=== PATIENT | male | born 1930 | race Caucasian/White ===

== ENCOUNTER 2018-09-28 13:45 | Emergency (ER) | payer OTHER ==
[~2018-09-28] VITALS: Ht 177.8 cm; Wt 70.3 kg
--- NOTE | ~2018-09-28 | EKG ---
[place] [address] [employer] [employer] [place] [address] ELECTROCARDIOGRAM REPORT Name: KATRINA ROY Room #: FABY Browning#: [id number] Admission: 09/28/18 Attend Phys: Discharge: 09/28/18 Date of : 32 Report #: [id number] THIS REPORT FOR: //name// [facility] ED Test Date: 2018-09-28 Test Time: 13:58:39 Pat Name: KATRINA ROY Department: Room: Gender: Loaders: JEANETTE : 1930 Requested By: Han Montoya Order Number: [id number] MD: Kirill Goldberg Measurements Intervals [place] Rate: 87 P: 68 CT: 216 QRS: 21 QRSD: 98 T: 42 QT: 376 QTc: 453 Interpretive Statements Sinus rhythm Atrial premature complex Borderline prolonged CT interval No previous ECG available for comparison Electronically Signed On 09-29-2018 8:42:16 [employer]LLNESS MANAGER by Kirill Goldberg [email or web address] <ELECTRONICALLY SIGNED> By: Kirill Goldberg MD, [facility] 09/29/18 [id number] Kirill Goldberg MD, FACC /EPI
[2018-09-28] MEDS ORDERED: LEXAPRO 10 MG T10 M2 PO (14:00)
[2018-09-28] MEDS ORDERED: COUMADIN 5 MG TA5 M1 PO (14:00)
[2018-09-28] MEDS ORDERED: NEXIUM40 MG PO (14:00)
[2018-09-28 14:26] LABS: ABSOLUTE NEUTROPHILS 3.8 thou/uL (1.4-8.2); BASOPHILS 0.5 % (0.0-2.0); EOSINOPHILS 0.8 % (0.0-3.0); HEMATOCRIT 39.3 % (42.0-52.0); HEMOGLOBIN 13.4 gm/dL (14.0-18.0); LYMPHOCYTES 10.2 % (24.0-44.0); MCH 30.8 pg (26.0-34.0); MCHC 34.1 g/dL (28.0-37.0); MCV 90.4 fL (80.0-100.0); MONOCYTES 7.6 % (1.0-8.0); PLATELET COUNT 208 thou/uL (150-400); POLYS 80.9 % (36.0-66.0); RBC 4.35 mil/uL (4.50-6.00); RDW 14.1 % (10.5-14.5); WBC 4.7 thou/uL (4.0-11.0)
[2018-09-28 14:39] LABS: ANION GAP 8 mmol/L (7-16); BUN 9 mg/dL (7-18); CALCIUM 9.1 mg/dL (8.5-10.1); CHLORIDE 103 mmol/L (98-107); CO2 26 mmol/L (21-32); CREATININE 1.1 mg/dL (0.7-1.3); GLUCOSE 98 mg/dL (74-106); POTASSIUM 3.7 mmol/L (3.5-5.1); SODIUM 137 mmol/L (136-145)
[2018-09-28 14:40] LABS: APTT 34.2 Seconds (24.5-32.8); INR 1.3; PROTIME 13.5 Seconds (9.3-11.4)
[2018-09-28 14:44] LABS: ALBUMIN 3.8 g/dL (3.4-5.0); MAGNESIUM 1.6 mg/dL (1.8-2.4); SGOT 21 U/L (15-37); SGPT 31 U/L (30-65); TOTAL BILIRUBIN 0.5 mg/dL (<0.1-1.0); TOTAL PROTEIN 7.2 g/dL (6.4-8.2); TROPONIN-I <0.06 ng/mL (<0.06)
[2018-09-28 14:53] LABS: PCO2 VENOUS 36.2 mmHg (41.0-51.0); PO2 VENOUS 43.4 mmHg (35.0-45.0)
[2018-09-28] MEDS ORDERED: PREDNISONE 20 M20 MG PO (15:48)
[2018-09-28 16:21] VITALS: BP 141/75
== END 2018-09-28 16:22 | disposition home or self-care (01) ==
LOC: ER 13:45
PROVIDERS: Emergency Medicine
DX: J44.1 Chronic obstructive pulmonary disease with (acute) exacerbation (principal); I48.91 Unspecified atrial fibrillation; H35.30 Unspecified macular degeneration; Z87.19 Personal history of other diseases of the digestive system; Z88.0 Allergy status to penicillin